=== PATIENT | male | born 1980 | race Caucasian/White ===

== ENCOUNTER 2017-06-06 02:37 | Emergency (ER) | payer SELFPAY ==
[~2017-06-06] VITALS: Ht 180.3 cm; Wt 117.5 kg
--- NOTE | 2017-06-06 02:45 | NUR ---
Patient to ER bed 6 to gown for evaluation. Side rails up. Report given to Zane BAÑUELOS.
[2017-06-06 02:50] VITALS: BP_SYST 140
--- NOTE | 2017-06-06 02:51 | NUR ---
Patient to ER C/O 04/06 pelvic pain radiating to left flank with nausea and vomiting since 11 pm last night. Also C/O urinary frequency. AAOx4, unlabored breathing, left vertebro-costal angle tender with palpation, mild distress.
--- NOTE | 2017-06-06 02:54 | NUR ---
ER MD Zaidi at bedside evaluating the patient
--- NOTE | 2017-06-06 03:16 | NUR ---
Transfer Iron Operator at bedside for blood draw. Patient identified x2
[2017-06-06] MEDS ORDERED: NACL 0.9% 1,000 ML IV ONE (03:18)
--- NOTE | 2017-06-06 03:27 | NUR ---
# 20 gauge angiocath placed to left hand. Use of asceptic technique. Opsite placed over site. Blood return noted. Flushed with 10 cc of normal saline. No evidence of infiltration noted. Patient tolerated well.
[2017-06-06] MEDS ORDERED: KETOROLAC TROMETHAMINE 30 MG VIAL IVP ONE (03:30)
[2017-06-06] MEDS ORDERED: ONDANSETRON HCL 4 MG/2 ML VIAL IVP ONE (03:30)
--- NOTE | 2017-06-06 03:48 | NUR ---
Patient reports pain 5/10, 15 minutes after administration of toradol. No adverse reactions noted after administration of toradol, zofran & NS fluids. Will continue to monitor.
--- NOTE | 2017-06-06 03:50 | NUR ---
No adverse reactions noted. Will continue to monitor.
[2017-06-06 03:52] LABS: HEMOGLOBIN 14.5 g/dL (14.0-18.0); RED BLOOD CELL COUNT(AUTO) 4.68 MIL/uL (4.2-6.2); WHITE BLOOD COUNT (AUTO) 7.8 K/uL (4.8-10.8)
[2017-06-06 03:53] LABS: BASOPHILS # (AUTO) 0.1 K/uL (0.0-0.2); BASOPHILS % (AUTO) 1.3 % (0.0-2.0); CALCIUM 9.2 mg/dL (8.4-11.0); CREATININE 1.63 mg/dL (0.55-1.30); EOSINOPHILS # (AUTO) 0.3 K/uL (0.0-0.4); EOSINOPHILS % (AUTO) 3.9 % (0.0-4.0); HEMATOCRIT 43.3 % (36-54); LYMPHOCYTES # (AUTO) 2.1 K/uL (1.0-5.5); LYMPHOCYTES % (AUTO) 26.3 % (20.5-51.5); MEAN CORPUSCULAR HEMOGLOBIN 31 pg (27-31); MEAN CORPUSCULAR HGB CONC 34 % (32-36); MEAN CORPUSCULAR VOLUME 93 fL (79.0-98.0); MONOCYTES # (AUTO) 0.8 K/uL (0.0-1.0); NEUTROPHILS # (AUTO) 4.5 K/uL (1.8-7.7); NEUTROPHILS % (AUTO) 58.5 % (40.0-70.0); PLATELET COUNT (AUTO) 182 K/uL (130-430); RED CELL DISTRIBUTION WIDTH 12.4 % (9.0-15.0)
[2017-06-06 04:37] LABS: BILIRUBIN,URINE NEGATIVE (NEGATIVE); BLOOD, URINE 3+ (NEGATIVE); CLARITY/URINE HAZY (CLEAR); COLOR,URINE YELLOW (YELLOW); GLUCOSE,URINE NEGATIVE (NEGATIVE); KETONES,URINE NEGATIVE (NEGATIVE); LEUKOCYTE ESTERASE ,URINE NEGATIVE (NEGATIVE); NITRITE, URINE NEGATIVE (NEGATIVE); PROTEIN URINE NEGATIVE (NEGATIVE); UROBILINOGEN,URINE 0.2 (0.2-1.0)
[2017-06-06 04:57] LABS: BACTERIA,URINE RARE /HPF (None Seen); RBC,URINE 20-50 /HPF (0-3); WBC,URINE 0-3 /HPF (0-3)
[2017-06-06 05:10] VITALS: BP_SYST 138
--- NOTE | 2017-06-06 05:10 | NUR ---
Patient given written and verbal discharge instructions and verbalizes understanding. ER MD discussed with patient the results and treatment provided. Patient in stable condition. ID arm band removed. IV catheter removed intact and dressing applied, no active bleeding. Rx of given. Patient educated on pain management and to follow up with PMD. Pain Scale 2/10. Opportunity for questions provided and answered.
== END 2017-06-06 05:10 | disposition home or self-care (01) ==
LOC: SED 02:37
DX: N20.1 Calculus of ureter (principal); I10 Essential (primary) hypertension
CPT/HCPCS: 36415; 74176; 80048; 81000; 85025; 96361; 96374; 96375; 99285; J1885; J2405; J7030

== ENCOUNTER 2017-12-01 13:16 | Emergency (ER) | payer MEDICAID ==
[~2017-12-01] VITALS: Ht 180.3 cm; Wt 117.9 kg
[2017-12-01 13:22] VITALS: BP_SYST 160
[2017-12-01 13:44] LABS: BILIRUBIN,URINE NEGATIVE (NEGATIVE); BLOOD, URINE 3+ (NEGATIVE); CLARITY/URINE CLOUDY (CLEAR); COLOR,URINE YELLOW (YELLOW); GLUCOSE,URINE NEGATIVE (NEGATIVE); KETONES,URINE TRACE (NEGATIVE); LEUKOCYTE ESTERASE ,URINE NEGATIVE (NEGATIVE); NITRITE, URINE NEGATIVE (NEGATIVE); PROTEIN URINE NEGATIVE (NEGATIVE); UROBILINOGEN,URINE 0.2 (0.2-1.0)
[2017-12-01 13:57] LABS: RBC,URINE >100 /HPF (0-3)
[2017-12-01 13:59] LABS: BACTERIA,URINE FEW /HPF (None Seen)
[2017-12-01 14:00] LABS: MUCUS,URINE None Seen /LPF (None Seen)
[2017-12-01] MEDS ORDERED: fentaNYL CITRATE/PF 100 MCG/2 ML AMP IVP ONE ×2 (14:15→15:45)
[2017-12-01] MEDS ORDERED: ONDANSETRON HCL 4 MG/2 ML VIAL IVP ONE (14:15)
[2017-12-01] MEDS ORDERED: NACL 0.9% 1,000 ML IV ONE (14:15)
[2017-12-01] MEDS ORDERED: KETOROLAC TROMETHAMINE 15 MG VIAL IVP ONE ×2 (14:15→17:15)
[2017-12-01 17:04] LABS: BASOPHILS % (AUTO) 0.4 % (0.0-2.0); EOSINOPHILS % (AUTO) 0.4 % (0.0-4.0); HEMATOCRIT 46.4 % (36-54); LYMPHOCYTES # (AUTO) 1.2 K/uL (1.0-5.5); LYMPHOCYTES % (AUTO) 11.4 % (20.5-51.5); MEAN CORPUSCULAR HEMOGLOBIN 30 pg (27-31); MEAN CORPUSCULAR HGB CONC 32 % (32-36); MEAN CORPUSCULAR VOLUME 92 fL (79.0-98.0); MONOCYTES # (AUTO) 0.4 K/uL (0.0-1.0); MONOCYTES % (AUTO) 3.3 % (1.7-9.3); NEUTROPHILS # (AUTO) 9.1 K/uL (1.8-7.7); NEUTROPHILS % (AUTO) 84.5 % (40.0-70.0); PLATELET COUNT (AUTO) 199 K/uL (130-430); RED BLOOD CELL COUNT(AUTO) 5.02 MIL/uL (4.2-6.2); WHITE BLOOD COUNT (AUTO) 10.7 K/uL (4.8-10.8)
[2017-12-01 17:20] LABS: CALCIUM 8.4 mg/dL (8.4-11.0); CREATININE 1.39 mg/dL (0.55-1.30); POTASSIUM 4.1 mmol/L (3.5-5.1)
[2017-12-01 17:25] LABS: ALBUMIN 3.8 g/dL (3.4-4.8); TOTAL BILIRUBIN 0.4 mg/dL (0.0-1.0)
[2017-12-01 17:58] VITALS: BP_SYST 143
== END 2017-12-01 17:58 | disposition home or self-care (01) ==
LOC: SED 13:16
DX: N20.0 Calculus of kidney (principal); R03.0 Elevated blood-pressure reading, without diagnosis of hypertension
CPT/HCPCS: 36415; 74176; 80053; 81000; 83690; 85025; 96361; 96374; 96375; 96376; 99285; J1885; J2405; J3010; J7030

== ENCOUNTER 2017-12-30 10:06 | Day surgery (SDC) | payer OTHER, MEDICAID ==
[2017-12-29 11:34] LABS: BASOPHILS # (AUTO) 0.1 K/uL (0.0-0.2); EOSINOPHILS # (AUTO) 0.2 K/uL (0.0-0.4); EOSINOPHILS % (AUTO) 3.3 % (0.0-4.0); HEMATOCRIT 46.2 % (36-54); HEMOGLOBIN 15.1 g/dL (14.0-18.0); LYMPHOCYTES # (AUTO) 2.3 K/uL (1.0-5.5); LYMPHOCYTES % (AUTO) 30.6 % (20.5-51.5); MEAN CORPUSCULAR HEMOGLOBIN 30 pg (27-31); MEAN CORPUSCULAR HGB CONC 33 % (32-36); MEAN CORPUSCULAR VOLUME 92 fL (79.0-98.0); MONOCYTES # (AUTO) 0.6 K/uL (0.0-1.0); MONOCYTES % (AUTO) 8.1 % (1.7-9.3); NEUTROPHILS # (AUTO) 4.3 K/uL (1.8-7.7); PLATELET COUNT (AUTO) 200 K/uL (130-430); RED BLOOD CELL COUNT(AUTO) 5.02 MIL/uL (4.2-6.2); RED CELL DISTRIBUTION WIDTH 12.3 % (9.0-15.0); WHITE BLOOD COUNT (AUTO) 7.5 K/uL (4.8-10.8)
[2017-12-29 11:48] LABS: BILIRUBIN,URINE NEGATIVE (NEGATIVE); BLOOD, URINE NEGATIVE (NEGATIVE); CLARITY/URINE SL HAZY (CLEAR); COLOR,URINE YELLOW (YELLOW); GLUCOSE,URINE NEGATIVE (NEGATIVE); KETONES,URINE NEGATIVE (NEGATIVE); LEUKOCYTE ESTERASE ,URINE NEGATIVE (NEGATIVE); NITRITE, URINE NEGATIVE (NEGATIVE); PROTEIN URINE NEGATIVE (NEGATIVE); UROBILINOGEN,URINE 0.2 (0.2-1.0)
[~2017-12-30] VITALS: Ht 203.2 cm; Wt 113.4 kg
[2017-12-30] MEDS ORDERED: NEOSTIGMINE METHYLSULFATE 1 MG/ML, 10 ML VIAL IVP ONE (12:25)
[2017-12-30] MEDS ORDERED: GLYCOPYRROLATE 0.2 MG/ML VIAL IJ ONE (12:25)
[2017-12-30] MEDS ORDERED: SEVOFLURANE 15 MIN GAS INH ONE (12:25)
[2017-12-30] MEDS ORDERED: LR 1,000 ML IV.SOLN IV ONE (12:25)
[2017-12-30] MEDS ORDERED: ROCURONIUM BROMIDE 10 MG/ML (ZEMURON) IV ONE (12:25)
[2017-12-30] MEDS ORDERED: fentaNYL CITRATE 250 MCG/5 ML AMP IV ONE (12:25)
[2017-12-30] MEDS ORDERED: PROPOFOL 200MG/ 20ML VIAL (DIPRIVAN) IV ONE (12:25)
[2017-12-30] MEDS ORDERED: MIDAZOLAM HCL 5 MG/5 ML VIAL IVP ONE (12:25)
[2017-12-30] MEDS ORDERED: NS IRRIG SOLN 1000 ML IR ONE (12:25)
[2017-12-30] MEDS ORDERED: LR 1,000 ML IV SCH (13:11)
[2017-12-30] MEDS ORDERED: METOCLOPRAMIDE HCL 10 MG/2 ML VIAL IVP PRN (13:15)
[2017-12-30] MEDS ORDERED: MORPHINE 4 MG/ML INJ. SYRINGE IVP PRN ×3 (13:15)
[2017-12-30] MEDS ORDERED: MORPHINE 4 MG/ML INJ. SYRINGE ONE (13:48)
[2017-12-30] MEDS ORDERED: HYDROcodone/ACETAMIN 5-325 MG TAB (NORCO/ VICODIN) PO PRN (14:30)
[2017-12-30] MEDS ORDERED: HYDROcodone/ACETAMIN 5-325 MG TAB (NORCO/ VICODIN) ONE (14:44)
[2017-12-30 15:38] VITALS: BP_SYST 131
== END 2017-12-30 16:15 | disposition home or self-care (01) ==
LOC: SMU 10:06 → SDS 10:06
PROVIDERS: ATTEND Orthopaedic Surgery
DX: M23.201 Derangement of unspecified lateral meniscus due to old tear or injury, left knee (principal); M94.262 Chondromalacia, left knee; Z98.890 Other specified postprocedural states; F17.200 Nicotine dependence, unspecified, uncomplicated; E66.01 Morbid (severe) obesity due to excess calories
CPT/HCPCS: 29881; 36415; 71046; 81003; 85025; J2250; J2270; J2704; J2710; J3010; J3490; J7120

== ENCOUNTER 2018-11-07 13:04 | Emergency (ER) | payer MEDICAID, OTHER ==
[~2018-11-07] VITALS: Ht 180.3 cm; Wt 117.9 kg
[2018-11-07 13:10] VITALS: BP_SYST 124
--- NOTE | 2018-11-07 13:30 | NUR ---
Patient to ER bed 4 to gown for evaluation. Side rails up. Report given to Ian BAÑUELOS.
--- NOTE | 2018-11-07 13:35 | NUR ---
ER at bedside examining patient.
--- NOTE | 2018-11-07 13:40 | NUR ---
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 He gave "a last push" and felt a "pop" in his left upper arm in bicept area on Monday 11/06 at 0100. He sought treatment at [facility] in [place] and was told needed MRI. Pt called his PCP and [facility] for MRI and no appointment until 19 of november. Patient report no medical history, no surgeries. Will continue to monitor.
[2018-11-07] MEDS ORDERED: KETOROLAC TROMETHAMINE 60 MG/2 ML VIAL IM ONE (14:00)
--- NOTE | 2018-11-07 14:00 | NUR ---
Applied splint to left arm, [address] amaya. Patient tolerated procedure well.
[2018-11-07 14:24] VITALS: BP_SYST 130
--- NOTE | 2018-11-07 14:24 | NUR ---
Patient given written and verbal discharge instructions and verbalizes understanding. ER MD discussed with patient the results and treatment provided. Patient in stable condition. ID arm band removed. Rx of motrin given. Patient educated on pain management and to follow up with PMD. Pain Scale 5/10. Opportunity for questions provided and answered. Medication side effect fact sheet provided.
== END 2018-11-07 14:24 | disposition home or self-care (01) ==
LOC: SED 13:04
DX: M79.602 Pain in left arm (principal); X58.XXXA Exposure to other specified factors, initial encounter; Y93.89 Activity, other specified; Y92.89 Other specified places as the place of occurrence of the external cause; Y99.8 Other external cause status
CPT/HCPCS: 29125; 96372; 99283; J1885; 99284

== ENCOUNTER 2020-04-18 12:47 | Emergency (ER) | payer MEDICAID, OTHER, SELFPAY ==
[~2020-04-18] VITALS: Ht 180.3 cm; Wt 116.6 kg
[2020-04-18 13:47] VITALS: BP_SYST 113
--- NOTE | 2020-04-18 13:47 | NUR ---
Pt placed on tent at this time
--- NOTE | 2020-04-18 13:48 | NUR ---
Pt brought by self, A&Ox4, pt presents to ER with mild cough , SOB , pt afebrile at this time, skin pink and warm, cap refill <3, VSS.
--- NOTE | 2020-04-18 14:15 | NUR ---
Dr Soriano assessing patient in the tent
[2020-04-18 14:19] VITALS: BP_SYST 113
--- NOTE | 2020-04-18 16:19 | NUR ---
Patient given written and verbal discharge instructions and verbalizes understanding. ER MD discussed with patient the results and treatment provided. Patient in stable condition. ID arm band removed. No Rx given. Patient educated on pain management and to follow up with PMD. Pain Scale 0/10 . Opportunity for questions provided and answered. Medication side effect fact sheet provided.
== END 2020-04-18 16:19 | disposition home or self-care (01) ==
LOC: SED 12:47
DX: B34.9 Viral infection, unspecified (principal); Z20.828 Contact with and (suspected) exposure to other viral communicable diseases
CPT/HCPCS: 99283; C9803; U0003

== ENCOUNTER 2020-10-11 08:33 | Emergency (ER) | payer MEDICAID, OTHER, SELFPAY ==
[~2020-10-11] VITALS: Ht 182.9 cm; Wt 117.9 kg
[2020-10-11 08:33] VITALS: BP_SYST 134
--- NOTE | 2020-10-11 08:33 | NUR ---
BROUGHT BACK TO FAST TRACK AND TRIAGED. REPORT GIVEN TO JOSE
--- NOTE | 2020-10-11 08:35 | NUR ---
Patient presented to ER C/O cough. Patient ambulatory to ER, afebrile, skin pink & warm oxygen saturaion 94% RA, pain 01/05, denies N/V/D. Patient states she is COVID positive since 10/07/2020 and has severe cough. PT placed on pulse-ox monitor and Dr. Borja made aware
--- NOTE | 2020-10-11 09:01 | NUR ---
ER Dr. GOMEZ at bedside examining patient.
[2020-10-11 10:30] VITALS: BP_SYST 139
--- NOTE | 2020-10-11 10:30 | NUR ---
Patient given written and verbal discharge instructions and verbalizes understanding. ER MD discussed with patient the results and treatment provided. Patient in stable condition. ID arm band removed. IV catheter removed intact and dressing applied, no active bleeding. NO Rx given. Patient educated on pain management and to follow up with PMD. Pain Scale 2/10. Opportunity for questions provided and answered. Medication side effect fact sheet provided.
== END 2020-10-11 10:30 | disposition home or self-care (01) ==
LOC: SED 08:33
DX: U07.1 COVID-19 (principal)
CPT/HCPCS: 71045; 99283

== ENCOUNTER 2021-12-20 15:10 | Emergency (ER) | payer OTHER, MEDICAID ==
[~2021-12-20] VITALS: Ht 180.3 cm; Wt 117.9 kg
--- NOTE | 2021-12-20 15:45 | NUR ---
Patient to ER bed 02 to gown for evaluation. Side rails up.
[2021-12-20 15:48] VITALS: BP_SYST 143
--- NOTE | 2021-12-20 15:50 | NUR ---
Patient brought in complaning of left lower calf pain x 3 days, 12/05. Patient reports having torn meniscus surgery on 12/10/21/, today was seen to suture removal and was advised to present to ED from ultrasound to rule out dvt.
--- NOTE | 2021-12-20 15:53 | NUR ---
ER Dr. Salas at bedside examining patient.
--- NOTE | 2021-12-20 16:04 | NUR ---
FITNESS CENTER ATTENDANT AT BEDSIDE.
[2021-12-20 17:09] VITALS: BP_SYST 132
--- NOTE | 2021-12-20 17:09 | NUR ---
Patient given written and verbal discharge instructions and verbalizes understanding. ER MD discussed with patient the results and treatment provided. Patient in stable condition. ID arm band removed. Patient educated on pain management and to follow up with PMD. Pain Scale . Opportunity for questions provided and answered. Medication side effect fact sheet provided.
== END 2021-12-20 17:09 | disposition home or self-care (01) ==
LOC: SED 15:10
DX: M79.661 Pain in right lower leg (principal); Z96.651 Presence of right artificial knee joint; E11.9 Type 2 diabetes mellitus without complications; I10 Essential (primary) hypertension
CPT/HCPCS: 93971; 99284

== ENCOUNTER 2024-06-10 18:07 | Emergency (ER) | payer OTHER ==
[~2024-06-10] VITALS: Ht 180.3 cm; Wt 89.8 kg
[~2024-06-10 18:07] MED LIST: CLIN-142 PO; MUPI1OIN5 TP
[2024-06-10 18:16] VITALS: BP_SYST 138; PULSE 110; RESP 18; TEMP 101.1; O2SAT 97
[2024-06-10] MEDS ORDERED: NIRM1TAB7 PO (20:38)
[2024-06-10] MEDS ORDERED: ALBMDI INH (20:38)
[2024-06-10 20:51] VITALS: BP_SYST 135; PULSE 99; RESP 18; TEMP 99.1; O2SAT 97
== END 2024-06-10 20:51 | disposition home or self-care (01) ==
LOC: SED 18:07
DX: U07.1 COVID-19 (principal); Z79.899 Other long term (current) drug therapy; Z79.2 Long term (current) use of antibiotics
CPT/HCPCS: 71045; 99283